=== PATIENT | female | born 1955 | race Caucasian/White ===

== ENCOUNTER 2017-01-15 16:24 | Emergency (ER) | payer BC ==
[2017-01-15] MEDS ORDERED: Rabies Vaccine, PCEC INJ* 1 ml IM ONE (21:06)
--- NOTE | 2017-01-15 21:18 | ED ---
Bite Injury/Animal - HPI Summary HPI Summary: 61F presents for rabies vaccine. A bat or other animal brushed by her on Wednesday. She states something flutter by her left ear and hit her ear. She did not see it well as it was dark out. She denies any scratches or bats. She called the health department and they recommended she come here. She states that she had a bad reaction was she has stroke like symptoms after the flu shot. She has never had this reaction with other vaccines. - History of Current Complaint Chief Complaint: EDAnimalBite Stated Complaint: NEED RABIES SHOT Time Seen by Provider: 01/15/17 17:42 Pain Intensity: 0 - Allergies/Home Medications Allergies/Adverse Reactions: Allergies Allergy/AdvReac Type Severity Reaction Status Date / Time Influenza Vaccines Allergy Severe Numbness Verified 01/15/17 17:37 stinging insects Allergy Tachycardia Uncoded 01/15/17 16:35 -Anaphylasi s PMH/Surg Hx/FS Hx/Imm Hx Endocrine/Hematology History: Denies: Hx Diabetes, Hx Thyroid Disease Cardiovascular History: Reports: Hx Hypertension Denies: Hx Pacemaker/ICD Respiratory History: Denies: Hx Asthma, Hx Chronic Obstructive Pulmonary Disease (COPD) GI History: Denies: Hx Ulcer History: Denies: Hx Renal Disease Sensory History: Denies: Hx Hearing Aid Psychiatric History: Denies: Hx Panic Disorder - Cancer History Cancer Type, Location and Year: MELANOMA Hx Chemotherapy: No Hx Radiation Therapy: No - Surgical History Surgery Procedure, Year, and Place: Melanoma removal. Appendectomy. Ovary Removed. Eye Surgery-STRIBISMUS. PLASTIC SURGERY RIGHT CHEEK. TONSILECTOMY. MELANOMA & BASAL CELL REMOVAL ON FACE Infectious Disease History: Yes Infectious Disease History: Denies: Hx Hepatitis, Hx Human Immunodeficiency Virus (HIV), Traveled Outside the [place] in Last 30 Days - Family History Known Family History: Positive: Cardiac Disease - Social History Alcohol Use: None Substance Use Type: Reports: None Smoking Status (MU): Never Smoked Tobacco Review of Systems Constitutional: Other - rabies vaccine needed Negative: Fever Negative: Cough Negative: Abdominal Pain All Other Systems Reviewed And Are Negative: Yes Physical Exam Triage Information Reviewed: Yes Vital Signs On Initial Exam: Initial Vitals Temp Pulse Resp BP Pulse Ox 98.9 F 78 20 175/100 98 01/15/17 16:35 01/15/17 16:35 01/15/17 16:35 01/15/17 16:35 01/15/17 16:35 Vital Signs Reviewed: Yes Appearance: Positive: Well-Appearing Skin: Positive: Warm, Dry, Other - no abrasion or bite seen Head/Face: Positive: Normal Head/Face Inspection Eyes: Positive: Normal, EOMI, TITUS, Conjunctiva Clear Respiratory/Lung Sounds: Positive: Clear to Auscultation, Breath Sounds Present Cardiovascular: Positive: Normal, RRR Diagnostics - Vital Signs Vital Signs Temp Pulse Resp BP Pulse Ox 01/15/17 17:32 97.8 F 68 12 175/101 100 01/15/17 16:35 98.9 F 78 20 175/100 98 - Laboratory Lab Statement: Any lab studies that have been ordered have been reviewed, and results considered in the medical decision making process. Bite Injury Course/Dx - Course Course Of Treatment: 61F presents for rabies vaccine. A bat or other animal brushed by her on Wednesday. She states something flutter by her left ear and hit her ear. She did not see it well as it was dark out. She denies any scratches or bats. She called the health department and they recommended she come here. She states that she had a bad reaction was she has stroke like symptoms after the flu shot. She has never had this reaction with other vaccines. no abrasion noted on exam. after discussion with health department said up to patient. discussed will just do vaccines. patient understands and agrees with plan. - Diagnoses Differential Diagnosis/HQI/PQRI: Positive: Laceration, Puncture, Rabies Exposure Provider Diagnosis: Need for rabies vaccination Discharge - Discharge Plan Condition: Good Disposition: HOME Patient Education Materials: Rabies Vaccine (By injection) Referrals: Charles Singleton MD [Primary Care Provider] - Additional Instructions: Follow up with health department for continued vaccinations. Return to ED if develop any reaction for vaccine or any new or worsening symptoms
[2017-01-15 22:22] VITALS: BP 137/86
== END 2017-01-15 22:24 | disposition home or self-care (01) ==
LOC: ED 16:24
DX: Z20.3 Contact with and (suspected) exposure to rabies (principal)
CPT/HCPCS: 90471; 90675; 99282

== ENCOUNTER 2019-05-26 06:32 | Day surgery (SDC) | payer BC ==
[~2019-05-26 06:32] MED LIST: Buffered Lidocaine 1% SYRIN* 1 ML/SYRINGE INTRADERM ONE; Dexamethasone TAB* 4 MG PO ONE; Famotidine IV* 10 MG/ML 2 ML (20 mg) IV ONE; Lactated Ringers 1000 ML Bag* 1,000 ML IV SCH; Ondansetron ODT TAB* 4 MG PO ONE
[2019-05-26] MEDS ORDERED: fentaNYL* 50 MCG/ML 2 ML VIAL (100 MCG VIAL) IV PRN (07:04)
[2019-05-26] MEDS ORDERED: Naloxone* 0.4 MG/ML 1 ML VIAL IV PRN (07:04)
[2019-05-26] MEDS ORDERED: Scopolamine 1.5 mg* PATCH TRANSDERM PRN (07:04)
[2019-05-26] MEDS ORDERED: oxyCODONE TAB* 5 MG TAB PO PRN (07:04)
[2019-05-26] MEDS ORDERED: HYDROmorphone INJ1* 1 MG/ML SYRINGE IV PRN (07:04)
[2019-05-26] MEDS ORDERED: DiMENhydriNATE IV* 50 MG/ML VIAL IV PUSH PRN (07:04)
[2019-05-26] MEDS ORDERED: PROCHLORPERAZINE INJ 5 MG/ML 2 ML VIAL IV PRN (07:04)
[2019-05-26] MEDS ORDERED: Famotidine IV* 10 MG/ML 2 ML (20 mg) ONE (07:18)
[2019-05-26] MEDS ORDERED: Buffered Lidocaine 1% SYRIN* 1 ML/SYRINGE INTRADERM ONE (07:18)
[2019-05-26] MEDS ORDERED: Ondansetron ODT TAB* 4 MG ONE (07:18)
[2019-05-26] MEDS ORDERED: Dexamethasone TAB* 4 MG ONE (07:18)
[2019-05-26] MEDS ORDERED: Midazolam* 1 MG/ML 5 ML VIAL (5 MG) ONE (09:07)
[2019-05-26] MEDS ORDERED: fentaNYL* 50 MCG/ML 2 ML VIAL (100 MCG VIAL) ONE (09:07)
[2019-05-26] MEDS ORDERED: Acetaminophen IV 1GM/100ML * 100 ML ONE (09:40)
[2019-05-26] MEDS ORDERED: Lidocaine 2% PF * 5 ML VIAL ONE (10:00)
[2019-05-26] MEDS ORDERED: Ketorolac INJ* 30 MG/ML 1 ML VIAL ONE (10:01)
[2019-05-26] MEDS ORDERED: Propofol* 10 MG/ML 20 ML BTL ONE (10:01)
[2019-05-26 11:15] VITALS: BP 140/85
--- NOTE | 2019-05-27 03:22 | OP ---
OPERATIVE REPORT: DATE OF OPERATION: 05/26/19 - [facility] DATE OF : 55 SURGEON: Jacqueline Valadez MD ANESTHESIOLOGIST: Dr. Galaviz. ANESTHESIA: General. PRE-OP DIAGNOSIS: Postmenopausal spotting and endometrial fluid. POST-OP DIAGNOSIS: Postmenopausal spotting and endometrial fluid. OPERATIVE PROCEDURE: Dilation and curettage. MATERIALS TO LAB: Endometrial curettings. ESTIMATED BLOOD LOSS: Minimal. URINE OUTPUT: 100 cc. IV FLUIDS: 800 cc lactated Ringer's. INDICATIONS: This patient is a 63-year-old 3, para 1, who presented reporting a scant amount of vaginal spotting over the previous year. An ultrasound was performed and the endometrial stripe was less than 2 mm; however , there was a thin rim of fluid within the endometrial cavity. An endometrial biopsy was attempted in the office; however, the cervical os was too stenotic for the procedure to be completed. The patient was given the option of an operating room procedure versus closed surveillance and she decided to proceed with an operating room procedure. She was extensively counseled and consent was signed. FINDINGS: Very stenotic external cervical os. Once the cervical canal had been sufficiently dilated, the endometrial cavity appeared small and the tissue obtained was scant. COMPLICATIONS: None. DESCRIPTION OF PROCEDURE: The risks, benefits, and alternatives were described with the patient and informed consent was obtained. The patient was then to the operating room with IV running where general anesthesia was induced and found to be adequate. The patient was prepped and draped in the normal sterile fashion in the high lithotomy position and Adonay stirrups. A time-out was performed. The bladder was emptied. A bivalve speculum was placed in the vagina and a single- tooth tenaculum was placed on the anterior cervix. Initially, lacrimal duct dilators were used in an attempt to get through the external os but this was unsuccessful. A 11 blade scalpel was then used to make a tiny incision at the location of the os. Once this was done, a small amount of clear mucous immediately came out of the cervix. The cervical canal was easily located and gently dilated using small Hegar dilators. Once the cervix was adequately dilated, the uterus was sounded to about 6.5 cm. A curetting of the endometrial cavity was performed using a small Kevorkian curette. Only small amount of tissue was obtained and there was good cry noted throughout the uterine cavity. At that time, the tenaculum was then removed from the cervix and there was good hemostasis after applying some pressure and some silver nitrate. The speculum was then removed and the patient was returned to the supine position. The patient tolerated the procedure well. Sponge, lap, and needle counts were correct x2. [id number]/[facility] #: [id number] MTDD
[2019-05-29] MEDS ORDERED: Scopolamine PATCH Remove* 1 NOTE MISC PATCH OFF ONE (07:05)
== END 2019-05-26 11:29 | disposition home or self-care (01) ==
LOC: OR 06:32
PROVIDERS: ATTEND Obstetrics & Gynecology
DX: N95.0 Postmenopausal bleeding (principal); N88.2 Stricture and stenosis of cervix uteri; I10 Essential (primary) hypertension; M19.90 Unspecified osteoarthritis, unspecified site; F41.8 Other specified anxiety disorders; Z85.820 Personal history of malignant melanoma of skin
CPT/HCPCS: 88305; A9270-GY; J1885; J2250; J2704; J3010; J8540